=== PATIENT | male | born 1970 | race Caucasian/White ===

== ENCOUNTER 2019-05-04 09:14 | Emergency (ER) | payer OTHER, SELFPAY ==
[2019-05-04 09:21] VITALS: BP 141/77; PULSE 80; RESP 16; TEMP 37.1; O2SAT 98
--- NOTE | 2019-05-04 09:26 | DI.RAD_ITS ---
EXAM: XR ANKLE RT COMPLETE INDICATION: pain/swelling, hx gout. COMPARISON: No exams were available for comparison TECHNIQUE: 2D digital imaging was performed. FINDINGS: There is soft tissue swelling about the ankle. The mortise joint appears intact. There is no evidence of a fracture or dislocation.
--- NOTE | 2019-05-04 09:28 | ED.GENADUL_ITS ---
Discharge Plan Disposition Patient Disposition: HOME Condition: Improving Discharge Details Chief Complaint: Cellulitis Clinical Impression: Gout ED Provider: Americo Faith Home Meds and New Rx's Prescriptions: New colchicine 0.6 mg capsule 0.6 mg PO DAILY Qty: 7 RF: 0 prednisone 20 mg tablet 40 mg PO DAILY 5 Days Qty: 10 RF: 0 No Action indomethacin 75 mg Capsule, Extended Release 75 mg PO DAILY RF: 0 Discharge Instructions Instructions: Gout (ED) Additional Instructions: Take prednisone and colchicine as prescribed. Next dose this will be tomorrow. Hold indomethacin while taking prednisone. We will refer you to care management to establish primary care in this area. Return if you develop a fever, shaking chill, or any other acute concern. Medical Decision Making 49-year-old male presents from home with achy right foot and ankle pain over 2 days time, similar to previous gout, and for which she took indomethacin x1 day. He arrives without a fever, noted blood pressure 141/77, otherwise unremarkable vital signs. The right foot and ankle are mildly edematous and tender. Differential diagnosis includes occult traumatic injury, strain, gouty arthritis, must rule out infection. Referred for laboratory testing and x-ray. Patient's uric acid is elevated at 8.5, C-reactive protein 2.9, CBC with white count 7, hematocrit 39, platelets 228. Chemistries reveal normal creatinine of 1.1. BUN is 17. LFTs unremarkable. X-ray Lab Data Lab results reviewed: Yes I reviewed the patient's lab results. Labs: Laboratory Results - last 24 hr 05/04/19 05/04/19 09:55 09:55 WBC 7.57 RBC 4.27 L Hgb 13.3 L Hct 39.3 L MCV 92.0 MCH 31.1 MCHC 33.8 RDW 11.4 L Plt Count 228 MPV 8.4 Immature Gran % 0.1 Neutrophils % 70.4 Lymphocytes % 15.5 Monocytes % 11.9 Eosinophils % 1.6 Basophils % 0.5 Absolute Neutrophils 5.33 Absolute Lymphocytes 1.17 L Absolute Monocytes 0.90 H Absolute Eosinophils 0.12 Absolute Basophils 0.04 Sodium 142 Potassium 4.5 Chloride 104 Carbon Dioxide 28.9 Anion Gap 9.1 BUN 17 Creatinine 1.13 Estimated GFR/1.73 m2 >= 60.00 Glucose 129 H Uric Acid 8.5 H Calcium 8.9 Total Bilirubin 0.7 AST 15 ALT 17 Alkaline Phosphatase 49 C-Reactive Protein 2.91 H Total Protein 7.1 Albumin 3.7 HPI General Mode of arrival: ambulatory . Date/Time Provider Initiated Documentation: 05/04/19 09:18 . Limitations to Documentation: no limitations . Information obtained by: patient . History of Present Illness 49 year old M presents to the emergency department with the chief complaint of Right ankle pain over 2 days time, insidious in onset, described as moderate and similar to prior episodes, Quality is described as dull and constant, and is localized to the right and lower extremity. Patient reports no radiation. Patient started experiencing this day(s) and it has been constant. Rest improves symptom(s), Movement worsens symptoms . Patient notes other (Question subjective chills, no significant rash.). Patient did receive the following treatments prior to arrival, NSAID Related Data Home Medications Medication Instructions Recorded Confirmed colchicine 0.6 mg PO DAILY #7 cap 05/04/19 indomethacin 75 mg PO DAILY 05/04/19 05/04/19 prednisone 40 mg PO DAILY 5 Days #10 tab 05/04/19 Previous Rx's Medication Instructions Recorded colchicine 0.6 mg PO DAILY #7 cap 05/04/19 prednisone 40 mg PO DAILY 5 Days #10 tab 05/04/19 Allergies Allergy/AdvReac Type Severity Reaction Status Date / Time No Known Allergies Allergy Unverified 05/04/19 09:28 General Stated Complaint: Cellulitis ANURAG: 3 Review of Systems Review of Systems Narrative: Minimal improvement with indomethacin. Patient has otherwise recently been well. Denies traumatic injury. 6 systems reviewed and otherwise negative [facility] Social History Smoking/Tobacco Use Status: Former Tobacco Use Alcohol Intake: current Alcohol Intake frequency: a few times a week Substance use type: does not use Do you feel safe at home: Yes Do you feel safe in your relationship?: Yes Exam Narrative Exam Narrative: GEN: awake, alert, oriented 3. Pleasant, well groomed, interactive. HEAD: Normocephalic, atraumatic ENT: Mucous membranes moist, oropharynx unremarkable, External ear exam unremarkable EYES: PERRL, EOMI NECK: Full ROM, no VINAY, no menigismus CHEST/RESP: Nontender, clear to auscultation bilateral, no wheeze/rhonchi/rales CARDIOVASCULAR: RRR, no murmur, rub consuelo. 2+ Rad pulse bilateral EXT: Full ROM, the right foot and ankle are mildly edematous and tender throughout with discrete warmth. No significant erythema. Neuro: Grossly normal neurologic exam, conversant, interactive. Psych: Speech fluent, thoughts congruent, affect normal Course Vital Signs Vital signs: Vital Signs Temperature 37.1 C 05/04/19 09:21 Pulse 80 05/04/19 09:21 Respiratory Rate 16 05/04/19 09:21 Blood Pressure 141/77 H 05/04/19 09:21 Pulse Oximetry 98 05/04/19 09:21 Temperature 37.1 C 05/04/19 09:21 Temperature Source Tympanic 05/04/19 09:21 Pulse 80 05/04/19 09:21 Respiratory Rate 16 05/04/19 09:21 Blood Pressure 141/77 H 05/04/19 09:21 Blood Pressure Position Sitting 05/04/19 09:21 Pulse Oximetry 98 05/04/19 09:21 Oxygen Delivery Method Room Air 05/04/19 09:21 Oxygen Flow Rate 0 05/04/19 09:21 Pain Level 8 05/04/19 09:21
[2019-05-04 10:00] LABS: Abs Immature Grans 0.01 k/cumm (0.0-0.09); Absolute Basophil Count 0.04 k/cumm (0.0-0.2); Absolute Eosinophil Count 0.12 k/cumm (0.0-0.7); Absolute Lymphocyte Count 1.17 k/cumm (1.2-3.4); Absolute Neutrophil Count 5.33 k/cumm (1.2-6.7); Basophils % 0.5; Eosinophils % 1.6; HCT 39.3 % (40.0-50.0); HGB 13.3 g/dL (13.5-17.5); Immature Grans % 0.1; Lymphocytes % 15.5; Mean Corp. HGB Concentration 33.8 g/dL (32.0-36.0); Mean Corpuscular Hemoglobin 31.1 pg (27.0-33.0); Mean Platelet Volume 8.4 fL (8.0-11.0); Monocytes % 11.9; Neutrophils % 70.4; Platelet Count 228 x1000/uL (130-400); RBC 4.27 m/cumm (4.50-6.00); RBC Distribution Width 11.4 % (11.8-14.1); White Blood Cell Count 7.57 k/cumm (4.4-10.8)
[2019-05-04 10:14] LABS: ALT 17 U/L (16-63); AST 15 U/L (15-37); Albumin 3.7 g/dL (3.4-5.0); Alkaline Phosphatase 49 U/L (46-116); Anion Gap 9.1 mmol/L (3-11); BUN 17 mg/dL (7-18); Bilirubin, Total 0.7 mg/dL (0.2-1.0); C-Reactive Protein 2.91 mg/dL (0.0-0.3); CO2 28.9 mmol/L (21.0-32.0); CREATININE 1.13 mg/dL (0.70-1.30); Calcium 8.9 mg/dL (8.5-10.1); Chloride 104 mmol/L (98-107); Glucose 129 mg/dL (70-100); Potassium 4.5 mmol/L (3.5-5.1); Sodium 142 mmol/L (136-145); Total Protein 7.1 g/dL (6.4-8.2); Uric Acid 8.5 mg/dL (3.5-7.2)
[2019-05-04 11:15] VITALS: BP 141/77; PULSE 80; RESP 16; TEMP 37.1; O2SAT 98
== END 2019-05-04 11:17 | disposition home or self-care (01) ==
PROVIDERS: Emergency Provider Emergency Medicine
DX: M10.9 Gout, unspecified (principal)
CPT/HCPCS: 36415; 80053; 99283; 73610; 84550; 85025; 86140

== ENCOUNTER 2020-06-12 03:25 | Outpatient (CLI) | payer BC, SELFPAY | END 2020-06-12 03:45 | PROVIDERS: PCP Family Medicine; Visit Provider Family Medicine | CPT/HCPCS: 93225 ==

== ENCOUNTER 2020-06-17 08:45 | Outpatient (CLI) | payer BC, SELFPAY ==
--- NOTE | 2020-06-17 10:58 | W.HOLTRPT ---
Date of service: 06/17/20 Time of Service: 10:58 Holter Monitor Report Referring Provider:: Steve Indications:: Bradycardia Holter Monitor Note: This is a 48-hour Holter monitor ordered for indication of bradycardia. ?The patient was in normal sinus rhythm for the majority of the recording with an average heart rate of 61 bpm (minimum 47 bpm) ?The patient had 0 episodes of supraventricular tachycardia and rare PACs. ?There was one episode of NSVT which lasted 8 beats. There were rare PVCs. ?There were no episodes of atrial fibrillation, no pauses greater than 3 seconds no evidence of high degree heart block.
== END 2020-06-17 09:05 ==
PROVIDERS: PCP Family Medicine; Visit Provider Family Medicine
DX: R00.1 Bradycardia, unspecified (principal); I47.2 Ventricular tachycardia
CPT/HCPCS: 93226

== ENCOUNTER 2020-06-18 03:25 | Outpatient (CLI) | payer BC, SELFPAY ==
[2020-06-18 16:35] LABS: Uric Acid 6.7 mg/dL (3.5-7.2)
[2020-06-22 15:42] LABS: Methylmalonic Acid 0.25 nmol/mL (<=0.40)
== END 2020-06-18 03:45 ==
PROVIDERS: PCP Family Medicine; Visit Provider Family Medicine
DX: M10.9 Gout, unspecified (principal); E53.8 Deficiency of other specified B group vitamins
CPT/HCPCS: 36415; 80186; 84550

== ENCOUNTER 2020-07-12 04:14 | Outpatient (CLI) | payer BC, SELFPAY ==
[2020-07-13 12:07] LABS: SARS-CoV-2 RNA Not Detected (NotDetected); SARS-CoV-2 RNA Source Nasal/Nares
== END 2020-07-12 04:34 ==
PROVIDERS: PCP Family Medicine; Visit Provider Surgery
DX: Z11.59 Encounter for screening for other viral diseases (principal); Z01.818 Encounter for other preprocedural examination
CPT/HCPCS: U0003

== ENCOUNTER 2020-07-17 06:16 | Day surgery (SDC) | payer BC, SELFPAY ==
--- NOTE | 2020-07-17 06:39 | W.PM.OP ---
Date of service: 07/17/20 Time of Service: 07:30 Operative Note Operative Note DATE OF PROCEDURE: 07/17/20 PRE-OP DIAGNOSIS: Right inguinal hernia POST-OP DIAGNOSIS: same (direct and indirect) PROCEDURE: Right inguinal hernia repair with mesh SURGEON: Cora Carlin [employer] SUPERVISOR: Silvia Browne ANESTHESIA: regional, local and spinal ESTIMATED BLOOD LOSS: 10 PATHOLOGY: none sent COMPLICATIONS: None Patient was transported to: same day Patient's condition: stable Implants: BARD MESH: [id number] REF- [id number] - 2024-10-13 Indications: Mr. Grayson is a 50-year-old gentleman with a right inguinal hernia which causes him mild discomfort. He is quite active. I discussed hernia repair with him we reviewed the anatomy with a booklet. We reviewed the risks, alternatives and complications. Certainly this is not an emergency at this time as he is having minimal symptoms. I do recommend he have it fixed at some point as he is young healthy and quite active. Patient would like to have it fixed sooner rather than later. He is moving from the rental property into his own home here over the next week. We discussed proper lifting using his legs to avoid worsening pain. We also discussed signs and symptoms of incarceration and strangulation for which he should seek immediate help through the emergency department. We also discussed current recommendations for Covid testing prior to his procedure. I reviewed the state guidelines as well as quarantine requirements after testing. We also discussed pain control with a ilioinguinal nerve block done by anesthesia. Plan: Right inguinal hernia repair with mesh COVID testing prior to surgery TAP block for postoperative pain control Risks, benefits and complications have been reviewed. Complications include but are not limited to bleeding, infection, injury to vas, vessels and nerves, injury to bowel and adverse reaction to medications. Questions were entertained and answered to their satisfaction and they wished to proceed. Findings: Small indirect and direct hernia Small cord lipoma Procedure Description: After informed consent was obtained the patient was taken to the operating room. A spinal was done. The patient was placed in a supine position. Monitors and SCDs were applied and a timeout was done. The patient's name, date of , procedure type, procedure site, allergies to medications, preoperative antibiotic, and DVT prophylaxis were all reviewed. Fire risk was assessed. Next anesthesia did a tap block on the right side under ultrasound guidance. Please see their separate dictation. Once anesthesia was done the abdomen was prepped and draped in a sterile surgical fashion. 1% lidocaine was injected into the dermis in the right lower quadrant. An incision was made with a 15 blade in the right lower quadrant. Dissection was done with cautery through the subcutaneous tissues and Tenzin's fascia down to the external oblique fascia. The external ring was identified and the external oblique fascia was opened sharply through the external ring. The cut fascia was grasped with hemostats the cord structures were identified and a Elvira drain was placed around them. The cremasteric muscle was dissected away from the cord structures using both cautery and blunt dissection. A small hernia sac was identified and was pushed back into the peritoneum. A small direct hernia was also noted. A 6 x 6 piece of mesh was then cut in half. One half was cut in thirds and a plug was created. The plug was placed into the indirect defect and secured with 0 proline. The other half of the mesh was cut to size and attached to the lacunar ligament using a 2-0 Prolene double armed suture. The mesh was secured laterally and medially with a 2-0 Prolene, with a running suture. The tails of the mesh were wrapped around the cord structures effectively cinching down the internal ring. Once the mesh was secured the tissues were irrigated with some normal saline. No bleeding was identified. The external oblique fascia was re-approximated using 2-0 Vicryl running suture. The Tenzin's fascia was re-approximated using interrupted 3-0 Vicryl. The dermis was re-approximated with a running 4-0 Vicryl. The skin was cleaned and dried and skin affix was applied. The patient was woken up and taken back to same day surgery in stable condition. There were no immediate complications. Sponge, instrument and needle counts were correct at the end of the case x2.
--- NOTE | 2020-07-17 06:41 | W.PM.DSUDISC ---
Discharge Plan Disposition Patient Disposition: HOME Condition: Good Discharge Details Reason For Visit: Right inguinal hernia Attending Provider: Cora Carlin Primary Care Provider: Quintin Wilson Home Meds and New Rx's Prescriptions: Continued naproxen 500 mg tablet 500 mg PO BID PRNRF: 0 indomethacin 25 mg capsule 25 mg PO TID PRN Qty: 20 RF: 0 colchicine 0.6 mg capsule 1.2 mg PO DAILY MDD 2 caps PRN (Reason: gout) Qty: 20 RF: 0 Discharge Instructions Instructions: Open Herniorrhaphy (DC) Additional Instructions: Activity at Home after surgery: 1. Make sure you walk outside at least 4 times per day 2. You should be able to climb a flight of stairs 3. No driving while in pain or taking pain medications 4. No strenuous activity or heavy lifting for 4 weeks (open surgery) Diet, Nutrition, & wound healin. Avoid alcohol until after you are recovered from your surgery 2. Make sure to eat plenty of lean protein (meat, fish, eggs, cottage cheese, beans) 3. Eat a variety of fruits and vegetables. Eat plenty of high fiber foods to avoid constipation. 4. Drink plenty of liquids to stay hydrated and avoid constipation Pain Medications: 1. Tylenol 650 mg every 6 hours as needed 2. Naproxen 500 mg 2 x a day as needed or Advil (Ibuprofen 600 mg every 6 hours as needed) 2. If a narcotic has been prescribed take as directed only for breakthrough pain For Constipation: 1. Take Milk of Magnesia or MiraLax as needed for constipation Other: 1. You may shower daily. Do not scrub the incisions 2. Do not soak the incisions for 1 week 3. You may alternate ice and heat as needed for pain and swelling Wound Care: 1. Keep the incisions clean and dry Please call our office if you develop: 1. Fevers >101.5 2. Nausea or Vomiting 3. Worsening pain 4. Redness and thick discharge from the wounds If after hours please call the Hospital at and ask to speak to the on-call surgeon Referrals: Cora Carlin MD [ [facility] STAFF PHYSICIAN] - 08/02/20 9:00 am Activity:: no Lifting >20 lb Shower/Bathe:: 24 hours Diet:: As Tolerated Discharge Orders Discharge Orders: Discharge Order (Routine); Ordered 07/17/20 Ordered By: Cora Carlin
[2020-07-17 06:51] VITALS: BP 126/72; PULSE 60; RESP 18; TEMP 36.4; O2SAT 98
[2020-07-17] MEDS: Acetaminophen 500 MG TAB 1000 MG PO (07:01)
[2020-07-17] MEDS: Gabapentin 300 MG CAP 600 MG PO (07:01)
[2020-07-17] MEDS: Celecoxib 200 MG CAP PO (07:01)
[2020-07-17] MEDS: ceFAZolin 2 GM/50 ML BAG IVPB (07:29)
[2020-07-17] MEDS: Lactated Ringers 1,000 ML 80 ML IV (07:29)
[2020-07-17] MEDS: Bupivacaine LIPOSOME/PF 133 MG/10 ML VIAL IJ (07:38)
[2020-07-17] MEDS: Bupivacaine 0.25% Pres-Free 30 ML VIAL (07:38)
[2020-07-17] MEDS: Lidocaine 1% Multi-Dose 50 ML VIAL (08:30)
[2020-07-17 09:32] VITALS: BP 105/60; PULSE 60; RESP 18; TEMP 36.3; O2SAT 98
== END 2020-07-17 10:42 | disposition home or self-care (01) ==
PROVIDERS: PCP Family Medicine; Visit Provider Surgery
PROC: (CPT 49505; principal; 2020-07-17 07:30)
DX: K40.90 Unilateral inguinal hernia, without obstruction or gangrene, not specified as recurrent (principal); G89.18 Other acute postprocedural pain
CPT/HCPCS: 49505; 76942; C1781; J0690; J2001; J2250

== ENCOUNTER 2020-10-17 03:53 | Outpatient (CLI) | payer BC, SELFPAY ==
[2020-10-17 12:28] LABS: Hemoglobin A1C 5.7 % (<5.7)
[2020-10-17 12:45] LABS: Calculated LDL 141 mg/dL (<100); Cholesterol 231 mg/dL (<200); HDL Cholesterol 71 mg/dL (40-60); Triglyceride 98 mg/dL (<150)
[2020-10-17 12:59] LABS: Uric Acid 8.9 mg/dL (3.5-7.2)
[2020-10-17 17:32] LABS: PSA, Screening 0.5 ng/mL (0.0-3.5)
== END 2020-10-17 03:54 | disposition home or self-care (01) ==
LOC: LOS 03:53
PROVIDERS: PCP Family Medicine; Visit Provider Family Medicine
DX: E78.5 Hyperlipidemia, unspecified (principal); R73.9 Hyperglycemia, unspecified; M10.9 Gout, unspecified; Z12.5 Encounter for screening for malignant neoplasm of prostate
CPT/HCPCS: 36415; 80061; 84153; 83036; 84550

== ENCOUNTER 2021-10-28 01:31 | Outpatient (CLI) | payer BC, SELFPAY ==
[2021-10-28 17:26] LABS: Calculated LDL 128 mg/dL (<100); Cholesterol 229 mg/dL (<200); HDL Cholesterol 75 mg/dL (40-60); Triglyceride 133 mg/dL (<150)
[2021-10-28 17:42] LABS: Uric Acid 9.3 mg/dL (3.5-7.2)
[2021-10-29 15:08] LABS: ANA Interpretation Negative (Negative)
== END 2021-10-28 01:32 | disposition home or self-care (01) ==
LOC: LBO 01:31
PROVIDERS: PCP Family Medicine; Visit Provider Family Medicine
DX: E78.5 Hyperlipidemia, unspecified (principal); M10.9 Gout, unspecified; M19.90 Unspecified osteoarthritis, unspecified site; R21 Rash and other nonspecific skin eruption
CPT/HCPCS: 36415; 80061; 84550; 86038

== ENCOUNTER 2021-10-29 19:26 | Outpatient (CLI) | payer OTHER, SELFPAY ==
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
== END 2021-10-29 19:46 ==
PROVIDERS: PCP Family Medicine; Visit Provider Nurse Practitioner Family
DX: M50.121 Cervical disc disorder at C4-C5 level with radiculopathy; M50.122 Cervical disc disorder at C5-C6 level with radiculopathy; M50.123 Cervical disc disorder at C6-C7 level with radiculopathy
CPT/HCPCS: 72050; 72072

== ENCOUNTER → 2022-05-08 13:14 | Outpatient (CLI) | payer BC, SELFPAY ==
--- NOTE | 2022-05-08 08:30 | DI.RAD_ITS ---
Exam(s) XR CHEST 2V PA LATERAL EXAM: XR CHEST 2V PA LATERAL CLINICAL HISTORY: PERSISTENT COUGH--R05.9 TECHNIQUE: 2D digital imaging was performed. COMPARISON: No exams were available for comparison FINDINGS: HEART: Normal size. Aorta: PULMONARY VASCULATURE: Normal. LUNGS: Clear. PLEURAL SPACE: No pleural effusion or pneumothorax. BONE:Unremarkable for age. IMPRESSION: No acute abnormality. DATA REPOSITORY: RADIATION DOSE DELIVERED:
== END ==
PROVIDERS: PCP Family Medicine; Visit Provider Emergency Medicine
DX: R05.9 Cough, unspecified (principal)
CPT/HCPCS: 71046

== ENCOUNTER 2022-10-07 11:56 | Outpatient (CLI) | payer BC, SELFPAY ==
[2022-10-07 12:27] LABS: Abs Immature Grans 0.03 10^3/uL (0.0-0.06); Absolute Basophil Count 0.05 10^3/uL (0.0-0.2); Absolute Eosinophil Count 0.13 10^3/uL (0.0-0.7); Absolute Lymphocyte Count 1.82 10^3/uL (1.2-3.4); Absolute Monocyte Count 1.26 10^3/uL (0.1-0.8); Absolute Neutrophil Count 5.62 10^3/uL (1.2-6.7); Basophils % 0.6; Eosinophils % 1.5; HCT 40.8 % (40.0-50.0); HGB 13.8 g/dL (13.5-17.5); Immature Grans % 0.3; Lymphocytes % 20.4; MCH 30.3 pg (27.0-33.0); MCHC 33.8 % (32.0-36.0); MCV 90 fL (80-95); MPV 9.1 fL (8.0-11.0); Monocytes % 14.1; Neutrophils % 63.1; Platelet Count 298 10^3/uL (130-400); RBC 4.56 10^6/uL (4.36-5.78); RDW 11.3 % (11.8-14.1); RDW-SD 36.6 fL; WBC 8.91 10^3/uL (4.4-10.8)
[2022-10-07 12:38] LABS: Uric Acid 6.8 mg/dL (3.5-7.2)
[2022-10-07 21:59] LABS: Rheumatoid Factor 8.8 IU/mL (<12.0)
[2022-10-08 12:23] LABS: Lab Add On Test DONE
[2022-10-12 14:53] LABS: ANA Interpretation Negative (Negative)
== END 2022-10-07 11:57 | disposition home or self-care (01) ==
LOC: LOS 11:59
PROVIDERS: PCP Family Medicine; Visit Provider Family Medicine
DX: D64.9 Anemia, unspecified (principal); M10.9 Gout, unspecified; R61 Generalized hyperhidrosis; M25.59 Pain in other specified joint; R21 Rash and other nonspecific skin eruption
CPT/HCPCS: 36415; 84550; 85025; 86038; 86140; 86431

== ENCOUNTER 2022-10-29 02:45 | Outpatient (CLI) | payer BC, SELFPAY ==
[2022-10-29 12:39] LABS: ALT 27 U/L (16-63); AST 19 U/L (15-37); Albumin 3.7 g/dL (3.4-5.0); Alkaline Phosphatase 48 U/L (46-116); Anion Gap 7.9 mmol/L (3-11); BUN 22 mg/dL (7-18); Bilirubin, Total 0.5 mg/dL (0.2-1.0); C-Reactive Protein 0.14 mg/dL (0.0-0.3); CO2 26.1 mmol/L (21.0-32.0); Chloride 105 mmol/L (98-107); Glucose 105 mg/dL (74-106); Potassium 4.2 mmol/L (3.5-5.1); Sodium 139 mmol/L (136-145); Total Protein 6.8 g/dL (6.4-8.2)
== END 2022-10-29 02:46 | disposition home or self-care (01) ==
LOC: LOS 02:45
PROVIDERS: PCP Family Medicine; Visit Provider Family Medicine
DX: R10.9 Unspecified abdominal pain (principal); M25.50 Pain in unspecified joint; R79.82 Elevated C-reactive protein (CRP); R61 Generalized hyperhidrosis
CPT/HCPCS: 36415; 80053; 86140

== ENCOUNTER 2022-11-11 01:26 | Outpatient (CLI) | payer BC, SELFPAY ==
--- NOTE | 2022-11-11 06:45 | DI.CT_ITS ---
Exam(s) CT ABDOMEN PELVIS W EXAM: CT ABDOMEN PELVIS W CLINICAL HISTORY: abd pain,night sweats,elevated crp,r10.9,r61,r79.82 TECHNIQUE: Imaging Protocol: Axial computed tomography images with coronal and sagittal reformatted images were created and reviewed CONTRAST MATERIAL: Intravenous: Omnipaque 350 Contrast volume:100 mL Oral: Yes COMPARISON: There are no priors for comparison. FINDINGS: ABDOMEN: Lung Bases: Normal where visualized. Liver: Normal density. There are several tiny hypodensities in the liver. They are too small for fur ther characterization at this time. There is a 1.7 cm hypodensity in the inferior aspect of the righ t lobe of the liver. There does appear to be some peripheral enhancement suggesting a hepatic lila ioma. Portal, Superior Mesenteric, and Splenic Veins: Unremarkable. Gallbladder and Biliary Tract: No radiodense calculus or dilation. Pancreas: Normal density, no abnormal calcifications or inflammatory process. Spleen: Normal. Adrenals: No masses seen. Kidneys: Normal size, contour and axis. No radiodense stones or obstructive uropathy. No masses seen. Abdominal Aorta: Abdominal portion non-dilated. Minimal atherosclerosis. Bowel: No obstruction or bowel wall thickening. Appendix is unremarkable. Peritoneal Cavity: No ascites, collection or mesenteric inflammatory response. No free air. Lymph Nodes: Within normal limits. Bones: Within normal limits for the patient's age. Soft Tissues: There are findings suggestive of a prior right inguinal hernia repair. PELVIS: Bladder: There is mild thickening of the wall of the urinary bladder. The bladder is underdistended. Reproductive Organs: Unremarkable as visualized. Lymph Nodes: Within normal limits. Bones: Within normal limits for the patient's age. IMPRESSION: 1. No acute abdominal or pelvic process. 2. Mild thickening of the wall of the urinary bladder. This may be due to underdistention, but an in fectious or inflammatory process cannot be excluded. Please correlate clinically. 3. 1.7 cm hypodensity in the inferior aspect of the right lobe of the liver. There does appear to be some peripheral enhancement. Findings may represent a hepatic hemangioma. An MRI of liver without and with contrast using the hepatic hemangioma protocol should be considered for further evaluation. RADIATION DOSE DELIVERED: 922.87mGy.cm Total DLP DATA REPOSITORY: All CT scans at this facility are submitted to the National Radiology Data Registry (NRDR) Dose Index Registry (DIR) with the [employer] (ACR). RADIATION OPTIMIZATION: All CT scans at this facility use at least one of these dose optimization te chniques: automated exposure control; mA and/or kV adjustment per patient size (includes targeted exa ms where dose is matched to clinical indication); or iterative reconstruction.
[2022-11-11] MEDS: Barium Sulfate 2% W/V-Berry Smoothie 450 ML BTL PO (08:11)
[2022-11-11] MEDS: Omnipaque 350 MG/ML 500 ML BTL-Imaging package IJ (10:14)
[2022-11-11] MEDS: Normal Saline - Diluent 50 ML VIAL IJ (10:15)
[2022-11-11] MEDS: Normal Saline Flush 10 ML SYR IVP (10:21)
== END 2022-11-11 01:46 ==
LOC: DI 01:27
PROVIDERS: PCP Family Medicine; Visit Provider Family Medicine
DX: R10.9 Unspecified abdominal pain (principal); R61 Generalized hyperhidrosis; R79.82 Elevated C-reactive protein (CRP); K76.89 Other specified diseases of liver; N32.89 Other specified disorders of bladder
CPT/HCPCS: 74177

== ENCOUNTER 2023-05-06 13:01 | Outpatient (CLI) | payer BC, SELFPAY ==
[2023-05-06 13:30] LABS: ALT 28 U/L (16-63); AST 23 U/L (15-37); Albumin 4.2 g/dL (3.4-5.0); Alkaline Phosphatase 45 U/L (46-116); Anion Gap 8.4 mmol/L (3-11); BUN 17 mg/dL (7-18); Bilirubin, Total 0.6 mg/dL (0.2-1.0); CO2 28.6 mmol/L (21.0-32.0); Calcium 9.5 mg/dL (8.5-10.1); Chloride 100 mmol/L (98-107); Estimated GFR 89.44 (mL/min/1.73m2); Glucose 105 mg/dL (74-106); Potassium 4.1 mmol/L (3.5-5.1); Sodium 137 mmol/L (136-145); Total Protein 7.4 g/dL (6.4-8.2)
[2023-05-06 14:34] LABS: Uric Acid 5.3 mg/dL (3.5-7.2)
== END 2023-05-06 13:02 | disposition home or self-care (01) ==
LOC: LBO 13:03
PROVIDERS: PCP Family Medicine; Visit Provider Internal Medicine Rheumatology
DX: M10.9 Gout, unspecified (principal)
CPT/HCPCS: 36415; 80053; 84550

== ENCOUNTER → 2023-05-13 03:13 | Outpatient (CLI) | payer BC, SELFPAY ==
--- NOTE | 2023-05-13 07:00 | DI.MRI_ITS ---
Exam(s) MR ABDOMEN WO/W EXAM: MR ABDOMEN WO/W CLINICAL HISTORY: abnl liver finding on Ct, rectal pressure,bowel changs,r93.2,r19.4 TECHNIQUE: Multiplanar multisequence MRI was performed with both pre and post contrast infused seque nces. Contrast injected sequences were performed following IV injection of 18 cc of Dotarem. COMPARISON: CT CT ABDOMEN PELVIS W from 11/11/2022 FINDINGS: VISUALIZED LUNG BASES: No pleural effusions evident. There is no ascites evident. LIVER: There are few tiny cyst in the right hepatic lobe noted. With respect to the more medially lo cated finding in the lower right hepatic lobe, this is a well-defined lobulated T2 bright lesion manju uring 1.8 cm by 1.1 cm.. Following contrast injection this lesion enhances in a fashion consistent wi th a benign hemangioma. BILIARY: There is no obvious gallbladder pathology. The CBD is not dilated. PANCREAS: There is no evidence of pancreatic mass nor dilatation of the pancreatic duct. SPLEEN: Spleen is not enlarged and there are no intrasplenic lesions.Splenic and portal veins are pat ent ADRENALS: There are no significant adrenal masses. KIDNEYS: No solid renal masses. No hydronephrosis.No cysts evident. ABDOMINAL AORTA: Not enlarged and there is no significant para-aortic adenopathy. ANTERIOR ABDOMINAL WALL/GI: There is no evidence of significant anterior abdominal wall hernia in the field of view of this study.Is no evidence of obvious bowel obstruction. OSSEOUS: There are no lytic osseous lesions in the field of view of this study. IMPRESSION: 1. Lesion in the right hepatic lobe described on the recent CT scan has appearance of benign hemangio ma on this MRI examination. This can be followed up in 6 months with ultrasound or MRI. 2. There few tiny benign appendix cysts also noted. 3. No other focal significant findings in the upper abdomen. DATA REPOSITORY:
[2023-05-13] MEDS: Gadoterate meglumine 20 ML VIAL IVP (09:13)
== END ==
PROVIDERS: PCP Family Medicine; Visit Provider Nurse Practitioner Family
DX: R19.4 Change in bowel habit (principal); R93.2 Abnormal findings on diagnostic imaging of liver and biliary tract
CPT/HCPCS: 74183

== ENCOUNTER 2024-06-09 14:52 | Emergency (ER) | payer BC, SELFPAY ==
[2024-06-09] VITALS (28 sets, daily range): BP systolic 93–138; BP diastolic 75–110; PULSE 70–159; RESP 11–25; TEMP 36.9; O2SAT 89–100
--- NOTE | 2024-06-09 14:45 | RT.EKG_ITS ---
APPROVED REPORT Exam: Resting ECG Reason for Exam: Tachycardia Patient Location: E HR:158 bpm ECG Measurements Heart Rate 158 AXIS MT 79 P 85 QRSd 109 QRS -35 QT 347 T 139 QTc 563 Conclusion Sinus tachycardia...rate> 99 Incomplete RBBB and LAFB...axis(240,-40), S>R II III aVF LVH with secondary repolarization abnormality...multi-LVH criteria, abnrm ST-T Abnormal T, consider ischemia, inferior leads...T <-0.20mV, II III aVF Prolonged QT interval...QTc >500mS ?aflutter
--- NOTE | 2024-06-09 15:00 | DI.RAD_ITS ---
Exam(s) XR CHEST 2V PA LATERAL EXAM: XR CHEST 2V PA LATERAL CLINICAL HISTORY: syncope TECHNIQUE: 2D digital imaging was performed of the chest. Three images were obtained. PA and later al views were obtained. COMPARISON: CR XR CHEST 2V PA LATERAL from 05/08/2022 FINDINGS: MEDIASTINUM: Normal. HEART: Normal. PULMONARY VASCULATURE: Normal. LUNGS: Clear. PLEURAL SPACE: No pleural effusion or pneumothorax. BONE:Within normal limits for the patient's age. OTHER FINDINGS:Normal. IMPRESSION: No acute pulmonary findings. DATA REPOSITORY: RADIATION DOSE DELIVERED:
--- NOTE | 2024-06-09 15:00 | DI.CT_ITS ---
Exam(s) CT HEAD CERVICAL SPINE WO EXAM: CT HEAD CERVICAL SPINE WO CLINICAL HISTORY: fall, pain. TECHNIQUE: Imaging Protocol: Axial computed tomography images with coronal and sagittal reformatted images were created and reviewed COMPARISON: CR XR CERVICAL SPINE COMP 4-5V from 10/29/2021 FINDINGS: CT Head: Ventricles and Extra axial spaces: Normal in size and morphology for the patient's age. Hemorrhage: None. Cerebral parenchyma: No evidence of an acute territorial infarct. No mass effect. Midline shift: None. Brainstem/Cerebellum: Normal. Calvarium: Normal. Visualized Paranasal sinuses/Mastoids: There is mild mucosal thickening in the visualized paranasal s inuses. No fluid levels are seen. Soft Tissues: Unremarkable. CT Cervical Spine: Bones: No acute fracture or subluxation. 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 Age-appropriate mild degenerative changes are seen in the cervical spine. There is straightening of the normal cervical lordosis. Soft Tissues: Unremarkable. Lung Apices: No evidence of an apical pneumothorax. IMPRESSION: 1. No acute intracranial process. 2. No acute fracture or subluxation in the cervical spine. RADIATION DOSE DELIVERED: 1,405.8mGy.cm Total DLP DATA REPOSITORY: All CT scans at this facility are submitted to the National Radiology Data Registry (NRDR) Dose Index Registry (DIR) with the [employer] (ACR). RADIATION OPTIMIZATION: All CT scans at this facility use at least one of these dose optimization te chniques: automated exposure control; mA and/or kV adjustment per patient size (includes targeted exa ms where dose is matched to clinical indication); or iterative reconstruction.
--- NOTE | 2024-06-09 15:06 | ED.GENADUL_ITS ---
Discharge Plan Disposition Patient Disposition: Home Condition: Stable Discharge Details Clinical Impression: Atrial fibrillation with RVR, COVID, Syncope Primary Care Provider: Quintin Wilson ED Provider: Prabhakar He [facility] Meds and New Rx's Prescriptions: Continued sildenafil (pulm.hypertension) 20 mg tablet 20 - 100 mg PO DAILY PRN (Reason: sexual activity) Qty: 30 5RF tadalafil 20 mg tablet 10 - 20 mg PO DAILY PRN (Reason: sexual activity) Qty: 30 3RF Rx Instructions: administer approximately 30min before sexual activity; do not use more than 1 dose per 24hrs allopurinol 300 mg tablet 300 mg PO DAILY Qty: 90 3RF indomethacin 25 mg capsule 25 mg PO TID PRN Qty: 30 2RF amoxicillin-pot clavulanate 875-125 mg tablet 1 tab PO Q12H Qty: 14 0RF colchicine 0.6 mg tablet 0.6 mg PO BID PRN (Reason: gout) Qty: 10 4RF Discharge Instructions Additional Instructions: You were in atrial fibrillation when you arrived with rapid rates so you are given medication to slow your heart rate down. Once her heart rate was so doubt you converted into a normal sinus rhythm. Your blood work and imaging did not show any concerning findings. You are positive for coronavirus. Follow-up with your primary care provider especially regarding lingering symptoms within a week If you feel more ill, have severe chest pain or difficulty breathing return to the emergency department for reevaluation HPI General Date/Time Provider Initiated Documentation: 06/09/24 14:53 . Limitations to Documentation: no limitations . Information obtained by: patient . History of Present Illness 54 year old M presents to the emergency department with the chief complaint of elevated heart rate, syncope, described as moderate, Patient started experiencing this hour(s) (1) No relieving factors improve symptom(s), No exacerbating factors reported . Patient notes denies chest pain and fever/chills. Patient did receive the following treatments prior to arrival, none Related Data Home Medications ?Medication ?Instructions ?Recorded ?Confirmed colchicine 0.6 mg tablet 0.6 mg PO BID PRN gout #10 tabs 01/02/23 06/09/24 allopurinol 300 mg tablet 300 mg PO DAILY #90 tabs 10/27/23 06/09/24 indomethacin 25 mg capsule 25 mg PO TID PRN #30 caps 10/27/23 06/09/24 sildenafil (pulm.hypertension) 20 20 - 100 mg (1 - 5 x 20 mg) PO 10/27/23 06/09/24 mg tablet DAILY PRN sexual activity #30 tabs tadalafil 20 mg tablet 10 - 20 mg (0.5 - 1 x 20 mg) PO 10/27/23 05/16/24 DAILY PRN sexual activity #30 tabs amoxicillin 875 mg-potassium 1 tab PO Q12H #14 tabs 05/08/24 06/09/24 clavulanate 125 mg tablet Previous Rx's ?Medication ?Instructions ?Recorded colchicine 0.6 mg tablet 0.6 mg PO BID PRN gout #10 tabs 01/02/23 allopurinol 300 mg tablet 300 mg PO DAILY #90 tabs 10/27/23 indomethacin 25 mg capsule 25 mg PO TID PRN #30 caps 10/27/23 sildenafil (pulm.hypertension) 20 20 - 100 mg (1 - 5 x 20 mg) PO 10/27/23 mg tablet DAILY PRN sexual activity #30 tabs tadalafil 20 mg tablet 10 - 20 mg (0.5 - 1 x 20 mg) PO 10/27/23 DAILY PRN sexual activity #30 tabs amoxicillin 875 mg-potassium 1 tab PO Q12H #14 tabs 05/08/24 clavulanate 125 mg tablet Allergies Allergy/AdvReac Type Severity Reaction Status Date / Time No Known Allergies Allergy Verified 06/09/24 14:56 General Stated Complaint: Palpitatns ANURAG: 2 Review of Systems All systems reviewed & are unremarkable except as noted in HPI and below Constitutional Constitutional: Denies chills, Denies fever(s) and Denies weakness Cardiovascular Cardiovascular: Denies chest pain, Reports rapid heart rate, Reports lightheadedness and Denies dyspnea Respiratory Respiratory: Denies cough and Denies dyspnea Gastrointestinal Gastrointestinal: Denies abdominal pain, Denies nausea and Denies vomiting Neurologic Neurologic: Denies weakness Exam Const General: no acute distress Orientation: alert [facility] Head: normal to inspection Ears: external ears normal General nose exam: external nose normal Mouth: moist mucous membranes Eyes General: appearance normal, both eyes and all related structures Neck Neck: normal visual inspection Resp Effort & Inspection: normal respiratory effort and able to speak in complete sentences Auscultation: clear to auscultation bilaterally Cardio Jugular venous pressure: no JVD Rate: tachycardic Heart Sounds: no murmurs GI Palpation: soft and nontender Skin General skin exam: no rashes or lesions noted Neuro General: patient alert and patient oriented x3 Extrem General: normal to inspection Psych Mental Status: mental status grossly normal Course Vital Signs Vital signs: Vital Signs Temperature 36.9 C 06/09/24 14:53 Pulse 156 H 06/09/24 14:53 Respiratory Rate 14 06/09/24 14:53 Blood Pressure 136/80 06/09/24 14:53 Pulse Oximetry 99 06/09/24 14:53 Temperature 36.9 C 06/09/24 14:53 Temperature Source Skin 06/09/24 14:53 Pulse 156 H 06/09/24 14:53 Respiratory Rate 14 06/09/24 14:53 Blood Pressure 136/80 06/09/24 14:53 Blood Pressure Position Sitting 06/09/24 14:53 Pulse Oximetry 99 06/09/24 14:53 Oxygen Delivery Method Room Air 06/09/24 14:53 Oxygen Flow Rate 0 06/09/24 14:53 Pain Level 3 06/09/24 14:53 Medical Decision Making 54-year-old male who denies any significant past cardiac history, has history of gout who comes in with chief complaint of feeling like his heart rate is elevated with palpitations, and also had 1 episode of syncope. He says last night he started having some runny nose and some fatigue which he thought was from a cold. This continued today and then earlier while walking uphill he got lightheaded and sat down which resolved lightheadedness but felt his heart rate was elevated. He started walking towards car and apparently had a brief episode of loss of consciousness. He says after he woke up he was having some right- sided neck pain. He denies any head pain, chest pain or pressure, abdominal pain, vomiting. He has noted to be tachycardic with a persistent heart rate of 150 on exam, otherwise stable vital signs. No focal neurological deficits, no signs of trauma to the head. Does have some right-sided lateral neck discomf ort. Suspect he is in a flutter with 2-1 conduction, will check CBC, CMP, troponins, magnesium, give a dose of IV diltiazem, obtain D-dimer to screen for PE. He has no tearing back pain so doubt dissection. Will obtain CT head and cervical spine to evaluate for possible traumatic injuries from the fall. After 20 mg of IV diltiazem his rate dropped to the 90s to low 100s and did show that he is in a flutter. Patient hemodynamically stable, pending lab work and imaging results. patient now in sinus rhythm, hemodyamically stable, labs unremarkable thus far, pending imaging and delta trops CT head and C-spine negative, cleared his c-collar. Chest x-ray unremarkable. Delta troponin negative. He has been in sinus rhythm for 2 hours now and has had no symptoms. He is COVID-positive. I discussed all results with him, given he is in sinus rhythm with reassuring workup feel he is stable for discharge. He has a 01 CHADS2 Vascor so do not feel anticoagulation indicated. He will follow-up with his PCP and return precautions given Differential Diagnosis Differential Diagnosis: A flutter/fib, electrolyte abnormality, PE, NSTEMI, electrolyte abnormality Lab Data Lab results reviewed: Yes I reviewed the patient's lab results. ECG Data Attestation: I personally reviewed and interpreted this ECG (s) as follows: Prior ECG tracings: available for review Interpretation: Suspect atrial flutter with a rate of 158, no STEMI. Second EKG shows atrial fibrillation, rate of 88, QTc 492, no STEMI 3rd ekg sinus rhythjm rate of 75 pr 175 no stemi Quality:SDOH Health Related Social Needs: No Data to Display Critical Care Time Critical Care Time Critical Care Time: Yes Total Critical Care Time: 45 (Minutes) Attestation: Time spent on hemodynamic monitoring, lab review, frequent reassessments and the patient required IV diltiazem due to being in a flutter with rapid ventricular response and potential to deteriorate at any time. PFSH All Active Problems (Updated 06/09/24 @ 17:35 by Prabhakar He MD) Syncope (Chronic) COVID (Acute) Atrial fibrillation with RVR (Acute) Rt inguinal pain (Acute) Liver hemangioma (Acute) Abdominal pain (Acute) Elevated C-reactive protein (CRP) (Acute) Arthralgia (Acute) Night sweats (Acute) Jaw pain, non-TMJ (Acute) Cough (Acute) Malar rash (Acute) Erectile dysfunction (Acute) Essential tremor (Acute) Gout (Chronic) Medical History Right inguinal hernia s/p surgery Bradycardia Lipoma of back Lipoma of arm Surgical History S/P right inguinal hernia repair (~07/17/20) History of wisdom tooth extraction Hx of colonoscopy Hx of arthroscopy of knee R knee Family History Mother Melanoma Heart disease Hyperlipidemia Father , age 81 Asthma Sister Diabetes Brother No problems noted. Brother No problems noted. Social History Smoking/Tobacco Use Status: Former Tobacco Use tobacco type: cigarettes and smokeless tobacco Quit Date: 08/16/04 Tobacco: How many years used: 10 Smokeless tobacco user: chewing tobacco Second Hand Exposure: Yes Smoking risk assessment performed?: Yes Alcohol Intake: current Alcohol Intake frequency: a few times a week Alcohol type: beer, wine and hard liquor Drug use: Never Substance use type: does not use Details: alcohol: t-3, two beers Caregiver/Support person: No Household members: spouse and family Housing: house Communication Needs: None Do you need help understanding health information?: Never Pets and animals: Yes Pets and animals: dog(s) Sexually active: Yes Do you think of yourself as: straight/heterosexual Current gender identity: male What is your relationship status?: How often do you talk on the phone with friends or family?: once per week How often do you get together with friends or relatives?: once per week How often do you attend hinduism or restoration services?: 1-3 times per year Do you belong to any clubs or organized social groups?: yes Panel score (0-1 are the most socially isolated patients): 2 What type of physical activity do you participate in: walking Duration: 45-60 minutes/day Frequency: 1-2 times per week Sylwia/Temple: [employer] Special sylwia needs: No Seatbelt use: always Helmet use: Yes Helmet use: always Drive intox or ride w/intox bus driver/monitor: No Do you feel safe at home: Yes Do you feel safe in your relationship?: Yes
[2024-06-09 15:15] LABS: BE (Venous) 1 mmol/L (-2-3); HCO3 (Venous) 26 mmol/L (23-28); O2 Sat (Venous) 63 %; TCO2 (Venous) 24 mmol/L (24-29); pCO2 (Venous) 45 mmHg (41-51); pH (Venous) 7.38 (7.31-7.41); pO2 (Venous) 33 mmHg
--- NOTE | 2024-06-09 15:15 | RT.EKG_ITS ---
APPROVED REPORT Exam: Resting ECG Reason for Exam: aflutter Patient Location: E HR:88 bpm ECG Measurements Heart Rate 88 AXIS NE [id number] P [id number] QRSd 106 QRS -13 QT 407 T 106 QTc 492 Conclusion Atrial fibrillation...V-rate 68-102, irreg A-activity LVH with secondary repolarization abnormality...multi-LVH criteria, abnrm ST-T
[2024-06-09 15:16] LABS: Abs Immature Grans 0.02 10^3/uL (0.0-0.06); Absolute Basophil Count 0.09 10^3/uL (0.0-0.2); Absolute Eosinophil Count 0.18 10^3/uL (0.0-0.7); Absolute Lymphocyte Count 1.77 10^3/uL (1.2-3.4); Absolute Monocyte Count 0.87 10^3/uL (0.1-0.8); Absolute Neutrophil Count 4.47 10^3/uL (1.2-6.7); Basophils % 1.2 %; Eosinophils % 2.4 %; HCT 44.1 % (40.0-50.0); HGB 15.1 g/dL (13.5-17.5); Immature Grans % 0.3 %; Lymphocytes % 23.9 %; MCH 31.7 pg (27.0-33.0); MCHC 34.2 % (32.0-36.0); MCV 93 fL (80-95); MPV 9.3 fL (8.0-11.0); Monocytes % 11.8 %; Neutrophils % 60.4 %; Platelet Count 197 10^3/uL (130-400); RBC 4.76 10^6/uL (4.36-5.78); RDW 11.4 % (11.8-14.1); RDW-SD 38.5 fL
[2024-06-09] MEDS: dilTIAZem 25 MG/5 ML VIAL 20 MG IVP (15:19)
[2024-06-09] MEDS: Normal Saline 1,000 ML 1000 ML IV (15:19)
[2024-06-09 15:33] LABS: Prothrombin Time 10.4 sec (9.1-11.1)
[2024-06-09 15:42] LABS: ALT 29 U/L (16-63); AST 24 U/L (15-37); Albumin 4.1 g/dL (3.4-5.0); Alkaline Phosphatase 46 U/L (46-116); Anion Gap 9.7 mmol/L (3-11); BUN 21 mg/dL (7-18); CO2 27.3 mmol/L (21.0-32.0); CREATININE 1.1 mg/dL (0.70-1.30); Calcium 9.2 mg/dL (8.5-10.1); Chloride 104 mmol/L (98-107); Estimated GFR 79.28 (mL/min/1.73m2); Glucose 96 mg/dL (74-106); NT-proBNP 581 pg/mL (<300); Potassium 3.7 mmol/L (3.5-5.1); Sodium 141 mmol/L (136-145); TSH (W/Ref FT4) 2.22 uIU/mL (0.36-3.74); Total Protein 7.7 g/dL (6.4-8.2); Troponin I 31 ng/L (<or=76)
[2024-06-09 15:51] LABS: D-Dimer 406 ng/mlFEU (<500)
--- NOTE | 2024-06-09 16:00 | RT.EKG_ITS ---
APPROVED REPORT Exam: Resting ECG Reason for Exam: syncope Patient Location: E HR:75 bpm ECG Measurements Heart Rate [address] 175 P 57 QRSd 107 QRS 0 QT 398 T 111 QTc 444 Conclusion Sinus rhythm...normal P axis, V-rate 60- 99 Left atrial enlargement...P, P'>60mS, <-0.15mV V1 LVH with secondary repolarization abnormality...multi-LVH criteria, abnrm ST-T ST elevation secondary to LVH...Multiple VCG criteria
[2024-06-09 16:08] LABS: Procalcitonin < 0.1 ng/mL
[2024-06-09 16:10] LABS: Influenza A PCR Negative (Negative); Influenza B PCR Negative (Negative); RSV PCR Negative (Negative)
[2024-06-09 16:15] LABS: COVID-19 PCR Positive (Negative); Source Nasopharynx
[2024-06-09 17:20] LABS: Troponin I 52 ng/L (<or=76)
== END 2024-06-09 17:47 | disposition home or self-care (01) ==
PROVIDERS: Emergency Provider Emergency Medicine; PCP Family Medicine
DX: R55 Syncope and collapse (principal); I48.91 Unspecified atrial fibrillation; U07.1 COVID-19; Z87.891 Personal history of nicotine dependence
CPT/HCPCS: 80053; 82805; 84145; 87637; 93005; 96361; 96374; 99284; 70450; 71046; 72125; 83735; 83880; 84443; 84484; 85025; 85379; 85610; 85730; 93010; 99283

== ENCOUNTER 2025-01-25 12:13 | Outpatient (CLI) | payer BC, SELFPAY ==
[2025-01-25 12:23] LABS: Abs Immature Grans 0.02 10^3/uL (0.0-0.06); Absolute Basophil Count 0.06 10^3/uL (0.0-0.2); Absolute Eosinophil Count 0.21 10^3/uL (0.0-0.7); Absolute Lymphocyte Count 1.61 10^3/uL (1.2-3.4); Absolute Monocyte Count 0.62 10^3/uL (0.1-0.8); Eosinophils % 3.6 %; HGB 14.4 g/dL (13.5-17.5); Immature Grans % 0.3 %; Lymphocytes % 27.7 %; MCH 30.1 pg (27.0-33.0); MCHC 33.5 % (32.0-36.0); MCV 90 fL (80-95); MPV 9.1 fL (8.0-11.0); Monocytes % 10.7 %; Neutrophils % 56.7 %; Platelet Count 241 10^3/uL (130-400); RBC 4.78 10^6/uL (4.36-5.78); RDW 11.5 % (11.8-14.1); RDW-SD 37.7 fL; WBC 5.82 10^3/uL (4.4-10.8)
[2025-01-26 10:10] LABS: Lyme Ab w Rflx to Lyme Confirm Negative (Negative)
[2025-01-27 23:14] LABS: Anaplasma phagocytophilum Negative (Negative); B. miyamotoi PCR Negative (Negative); Babesia divergens/MO-1 Negative (Negative); Babesia duncani Negative (Negative); Babesia microti Negative (Negative); Ehrlichia chaffeensis Negative (Negative); Ehrlichia ewingii/canis Negative (Negative); Ehrlichia muris eauclairensis Negative (Negative)
== END 2025-01-25 12:14 | disposition home or self-care (01) ==
LOC: LBO 12:14
PROVIDERS: PCP Family Medicine; Visit Provider Family Medicine
DX: D64.9 Anemia, unspecified (principal); M25.50 Pain in unspecified joint
CPT/HCPCS: 36415; 87798; 85025; 86618

== ENCOUNTER 2025-06-20 14:46 | Outpatient (CLI) | payer BC, SELFPAY ==
[2025-06-20 16:00] LABS: Abs Immature Grans 0.03 10^3/uL (0.0-0.06); HCT 41.3 % (40.0-50.0); HGB 13.7 g/dL (13.5-17.5); Immature Grans % 0.4 %; MCH 29.0 pg (27.0-33.0); MCHC 33.2 % (32.0-36.0); MCV 88 fL (80-95); MPV 9.0 fL (8.0-11.0); Platelet Count 256 10^3/uL (130-400); RBC 4.72 10^6/uL (4.36-5.78); RDW 11.8 % (11.8-14.1); RDW-SD 38.0 fL; WBC 8.05 10^3/uL (4.4-10.8)
[2025-06-20 16:06] LABS: ESR 15 mm/hr (0-20)
[2025-06-20 16:27] LABS: Hemoglobin A1C 5.7 % (<5.7)
[2025-06-20 16:38] LABS: ALT 26 U/L (16-63); AST 12 U/L (15-37); Albumin 3.9 g/dL (3.4-5.0); Alkaline Phosphatase 71 U/L (46-116); Anion Gap 8.8 mmol/L (3-11); BUN 16 mg/dL (7-18); Bilirubin, Total 0.5 mg/dL (0.2-1.0); CO2 31.2 mmol/L (21.0-32.0); Calcium 9.5 mg/dL (8.5-10.1); Chloride 101 mmol/L (98-107); Estimated GFR 88.33 (mL/min/1.73m2); Glucose 113 mg/dL (74-106); Potassium 3.8 mmol/L (3.5-5.1); Sodium 141 mmol/L (136-145); Total Protein 7.8 g/dL (6.4-8.2); Uric Acid 7.2 mg/dL (3.5-7.2)
== END 2025-06-20 14:47 | disposition home or self-care (01) ==
LOC: LBO 07-17 14:46
PROVIDERS: PCP Family Medicine; Visit Provider Family Medicine
DX: R73.01 Impaired fasting glucose (principal); M10.9 Gout, unspecified; M25.50 Pain in unspecified joint; M1A.9XX0 Chronic gout, unspecified, without tophus (tophi); Z00.00 Encounter for general adult medical examination without abnormal findings
CPT/HCPCS: 36415; 80053; 85652; 83036; 84550; 85025; 86038; 86431

== ENCOUNTER → 2025-07-02 01:59 | Outpatient (CLI) | payer BC, SELFPAY ==
--- NOTE | 2025-07-02 08:30 | DI.RAD_ITS ---
Exam(s) XR ARTHRITIS SERIES EXAM: XR ARTHRITIS SERIES CLINICAL HISTORY: bilat hand pain and swelling,arthralgia,m25.50. TECHNIQUE: 2D digital imaging was performed. COMPARISON: No exams were available for comparison FINDINGS: Two views both hands Bone density normal. No osseous lesions. No evidence of fracture or subluxations and there are no abnormal soft tissue calcifications evident. No erosions. No periarticular osteopenia. No erosions at the level the metacarpophalangeal joints nor other articulations. No significant findings in the wrists. IMPRESSION: No significant radiographic findings in the hands. No erosions. No obvious osteoarthritic degenerative changes. DATA REPOSITORY: RADIATION DOSE DELIVERED:
== END ==
LOC: DI 01:59
PROVIDERS: PCP Family Medicine; Visit Provider Family Medicine
DX: M79.641 Pain in right hand; M79.642 Pain in left hand; R22.33 Localized swelling, mass and lump, upper limb, bilateral
CPT/HCPCS: 73120